=== PATIENT | male | born 1960 | race Caucasian/White ===

== ENCOUNTER 2022-02-15 11:13 | Emergency (ER) | payer OTHER, SELFPAY ==
[2022-02-15 11:40] VITALS: BP 136/88; PULSE 71; RESP 18; TEMP 36.8; O2SAT 100
--- NOTE | 2022-02-15 12:10 | ED.EAR ---
HPI - Ear Problem General Chief complaint: Ear Stated complaint: foreign object in rt ear Time Seen by Provider: 02/15/22 12:10 Source: patient Mode of arrival: ambulatory Limitations: no limitations History of Present Illness HPI Narrative: Mr. Joe is a 61-year-old male patient presenting to the clinic today with complaints of a foreign body in his right ear. He reports he took his hearing aids out last night and the silicone dome got stuck in his ear canal. He denies any pain. MD Complaint: foreign body Location: right ear Related Data Home Medications Medication Instructions Recorded Confirmed No Home Medications 02/15/22 02/15/22 Allergies Allergy/AdvReac Type Severity Reaction Status Date / Time No Known Allergies Allergy Unknown Verified 02/15/22 12:15 Review of Systems Review of Systems: Pertinent positives per HPI. Patient denies any fever, chills, rash, headache, visual changes, dizziness, cough, runny nose, sore throat, shortness of breath, chest pain, palpitations, nausea, vomiting, diarrhea, constipation, abdominal pain, or any urinary issues. PMFSH Comments At the time of my signature, I reviewed and agree with the nursing past medical, surgical, social, and family history. There is no relevant family history pertinent to the patient complaint. Exam Narrative: General: Well-developed, well nourished, in no apparent distress Head: Normocephalic, atraumatic Eyes: Pupils equally round and reactive to light bilaterally, EOM intact, sclera and conjunctive clear, no discharge, lids normal Ears: TMs intact and clear, left ear canal clear, right ear canal with foreign body (silicone ear bud) to the external ear canal, forceps were used to remove the foreign body without complication, right ear canal clear after foreign body removal, no drainage, grossly hearing normal. Nose: Nares patent, no discharge, no inflammation, no sinus tenderness. Mouth: Oropharynx without lesions or masses, good dentition, MMM. Neck: Supple, trachea midline, no enlargement of anterior or posterior cervical nodes, no thyroid masses or goiter palpable. Cardio: Regular rate and rhythm, s1 and s2 normal, no murmur appreciated. Resp: Clear to auscultation bilaterally anteriorly and posteriorly, no rhonchi, rales, wheezing or rubs Course Course Emergency Course: Portions of this record may have been created with voice recognition software. Level of Care: Express Care Visit Vital Signs Vital signs: Vital Signs Temperature 36.8 C 02/15/22 11:40 Pulse Rate 71 02/15/22 11:40 Respiratory Rate 18 02/15/22 11:40 Blood Pressure 136/88 02/15/22 11:40 Pulse Oximetry 100 02/15/22 11:40 Oxygen Delivery Room Air 02/15/22 11:40 Temperature 36.8 C 02/15/22 11:40 Pulse Rate 71 02/15/22 11:40 Respiratory Rate 18 02/15/22 11:40 Blood Pressure 136/88 02/15/22 11:40 Pulse Oximetry 100 02/15/22 11:40 Oxygen Delivery Room Air 02/15/22 11:40 Vital signs reviewed Procedures FB Removal Ear Foreign Body #1: Foreign Body Removal Date: 02/15/22 Location: ear canal (R) Foreign Body Suspected: other plastic (Silicone hearing bud) TM intact pre-procedure: unable to visualize Foreign Body Removed: yes Foreign Body Removal Technique: forceps (Forceps) Tympanic Membrane Intact Post Procedure: Yes Patient Tolerated Procedure: well and no complications Medical Decision Making MDM Narrative Medical decision making narrative: At the time of visit patient is resting comfortably on the exam table. He has a silicone hearing but into his right external ear canal. I used a forceps to remove this without any complications. Patient tolerated well. Patient was discharged and he voiced understanding of his instructions. Differential Diagnosis Differential Diagnosis: Retained foreign body in right ear, removed foreign body in right ear, otalgia, otitis externa
== END 2022-02-15 12:18 | disposition home or self-care (01) ==
PROVIDERS: Emergency Provider Nurse Practitioner Family; PCP Emergency Medicine
DX: T16.1XXA Foreign body in right ear, initial encounter (principal); X58.XXXA Exposure to other specified factors, initial encounter
CPT/HCPCS: 69200; 99212; G0463

== ENCOUNTER 2024-06-09 10:03 | Emergency (ER) | payer OTHER, SELFPAY ==
[2024-06-09 10:15] VITALS: BP 152/85; PULSE 77; RESP 16; TEMP 36.8; O2SAT 98
[2024-06-09 10:16] VITALS: BP 152/85; PULSE 77; RESP 16; TEMP 36.8; O2SAT 98
--- NOTE | 2024-06-09 10:42 | ED.URI ---
HPI - URI/Sore Throat General Chief Complaint: Upper Respiratory Infection Stated Complaint: sinus infection Time Seen by Provider: 06/09/24 10:28 Source: patient and RN notes reviewed Mode of arrival: ambulatory Limitations: no limitations History of Present Illness HPI Narrative: Patient presents today complaining of 4 day history of productive cough, body aches, postnasal drainage. Denies fever, shortness of breath, nasal congestion, sore throat. No history of asthma or COPD. He has been taking Mucinex DM without relief. No known sick contacts. Related Data Home Medications Medication Instructions Recorded Confirmed No Home Medications 02/15/22 06/09/24 Allergies Allergy/AdvReac Type Severity Reaction Status Date / Time No Known Allergies Allergy Unknown Verified 06/09/24 10:15 Review of Systems Review of Systems: CONSTITUTIONAL: Denies fever, chills, or sweats.+ body aches EYES: Denies visual changes, redness, or discharge. ENT: Denies rhinorrhea, congestion, sore throat, or otalgia.+ postnasal drip CARDIOVASCULAR: Denies chest pain, palpitations, or edema. RESPIRATORY: Denies dyspnea.+ cough GASTROINTESTINAL: Denies abdominal pain, nausea, vomiting, or diarrhea. GENITOURINARY: Denies dysuria or hematuria. SKIN: Denies rash, itching, or wounds. MUSCULOSKELETAL: Denies back pain, joint pain, or myalgia. NEUROLOGIC: Denies headache, numbness, tingling, or weakness. PSYCH: Denies depression or anxiety. PMFSH Comments At time of signature, I have reviewed and agree with nursing past medical, surgical, social and family history unless otherwise noted. Please see nursing chart for further information. There is no relevant family history pertinent to the presenting complaint Exam Narrative: GENERAL: Well-appearing, well-nourished, and in no acute distress. HEAD: Normocephalic, atraumatic. EYES: EOMI. No redness or drainage. Conjunctivae normal. ENT: Mucous membranes pink and moist. Nares clear. No rhinorrhea. TMs normal bilaterally. Throat normal. Uvula midline. NECK: Normal AROM. Supple. No lymphadenopathy. CHEST: No respiratory distress. Clear to auscultation. HEART: Regular rate and rhythm. No murmur appreciated. EXTREMITIES: Normal range of motion. No edema. SKIN: Warm, dry, no rash. Capillary refill normal. Normal skin turgor. NEURO: No focal deficits. Alert and oriented x3. Gait steady. PSYCH: Normal affect. No signs of depression or anxiety. Course Course Level of Care: Express Care Visit Vital Signs Vital signs: Vital Signs Temperature 98.2 F 06/09/24 10:15 Pulse Rate 77 06/09/24 10:15 Respiratory Rate 16 06/09/24 10:15 Blood Pressure 152/85 H 06/09/24 10:15 Pulse Oximetry 98 06/09/24 10:15 Oxygen Delivery Room Air 06/09/24 10:15 Temperature 98.2 F 06/09/24 10:16 Pulse Rate 77 06/09/24 10:16 Respiratory Rate 16 06/09/24 10:16 Blood Pressure 152/85 H 06/09/24 10:16 Pulse Oximetry 98 06/09/24 10:16 Oxygen Delivery Room Air 06/09/24 10:16 Reviewed MDM - URI/Sore Throat MDM Narrative Medical decision making narrative: Patient's symptoms are likely due to viral illness. No prescription medications are indicated at this time. Anticipatory guidance given. Differential Diagnosis Differential diagnosis: Likely upper respiratory infection, sinusitis, viral infection and bronchitis Critical Care Time Critical Care Time Critical Care Time: No Discharge Plan Discharge Clinical Impression: Upper respiratory infection Patient Disposition: Home, Self-Care Condition: Stable Instructions: Upper Respiratory Infection (DC) Additional Instructions: Your symptoms are likely due to a viral illness, which is not treated with antibiotics. Virus symptoms can last for up to 7-10days. Take Tylenol or ibuprofen for pain or fever. Rest and stay hydrated. Follow up with your PCP in 7 days if symptoms are not improving. Go to t
== END 2024-06-09 10:41 | disposition home or self-care (01) ==
PROVIDERS: Emergency Provider Nurse Practitioner; PCP Emergency Medicine
DX: J06.9 Acute upper respiratory infection, unspecified (principal)
CPT/HCPCS: 99211; G0463